=== PATIENT | female | born 1935 | race Caucasian/White ===

== ENCOUNTER 2018-05-22 04:15 | Inpatient (IN) | payer MEDICARE ==
[~2018-05-22] VITALS: Ht 165.1 cm; Wt 68.0 kg
--- NOTE | 2018-05-22 04:15 | NUR ---
PT DIPESH ALS. TAKEN TO BED 10
[2018-05-22 04:19] VITALS: BP 216/85
--- NOTE | 2018-05-22 04:22 | NUR ---
EKG PERFORMED AT BEDSIDE WITH RN AND FAMILY MEMBER PRESENT. PT COVERED IN GOWN DURING PROCEDURE
[2018-05-22] MEDS ORDERED: cefTRIAXone 1,000 MG in DEXT 5% MINI-BAG PLUS 50 ML IV ONE (04:30)
--- NOTE | 2018-05-22 04:30 | NUR ---
BIBA. C/O ELEVATED BP X 8 HOURS. PT DENIES ANY CP/SOB. PATIENT RECTAL TEMP 92.5 UPON ARRIVAL. ALL OTHER VSS. GRANDAUGHTER AT BEDSIDE STATES THAT SHE WAS CALLED BY HER GRANDFATHER BECAUSE THE PATIENT WAS "ACTING STRANGE AND HALLUCINATING". HX OF DEMENTIA. PATEITN ANSWERING QUESTIONS APPROPRIATLY AT TIME OF ARRIVAL.
[2018-05-22] MEDS ORDERED: BENA40TA PO (04:33)
[2018-05-22] MEDS ORDERED: POTA20TE92 PO (04:33)
[2018-05-22] MEDS ORDERED: GLIM1TAB6 PO (04:33)
[2018-05-22] MEDS ORDERED: FLUT1POW3 IH (04:33)
[2018-05-22] MEDS ORDERED: FURO-570 PO (04:33)
[2018-05-22] MEDS ORDERED: CARV25TA PO (04:33)
[2018-05-22] MEDS ORDERED: ASPI81EC30 PO (04:33)
[2018-05-22] MEDS ORDERED: PRAV20TA2 PO (04:33)
--- NOTE | 2018-05-22 04:36 | NUR ---
ANYA YANG PUT OVER PATIENT TO HELP WITH WARMING.
[2018-05-22 04:56] LABS: BASOPHILS % (AUTO) 0.3 % (0.0-2.0); EOSINOPHILS # (AUTO) 0.3 K/uL (0-0.4); EOSINOPHILS % (AUTO) 3.1 % (0.0-4.0); HEMATOCRIT 39.9 % (36-48); HEMOGLOBIN 13.3 g/dL (12.0-16.0); LYMPHOCYTES # (AUTO) 1.7 K/uL (2.5-16.5); LYMPHOCYTES % (AUTO) 19.3 % (20.5-51.1); MEAN CORPUSCULAR HEMOGLOBIN 29 pg (27-31); MEAN CORPUSCULAR HGB CONC 33 g/dL (33-37); MEAN CORPUSCULAR VOLUME 88.5 fL (80-94); MONOCYTES # (AUTO) 0.4 K/uL (0.8-1.0); MONOCYTES % (AUTO) 4.2 % (1.7-9.3); NEUTROPHILS # (AUTO) 6.4 K/uL (1.8-7.7); NEUTROPHILS % (AUTO) 73.1 % (42.2-75.2); PLATELET COUNT (AUTO) 197 K/uL (140-450); RED BLOOD CELL COUNT(AUTO) 4.51 MIL/uL (4.20-5.40); RED CELL DISTRIBUTION WIDTH 14.5 % (11.6-13.7); WHITE BLOOD COUNT (AUTO) 8.7 K/uL (4.8-10.8)
[2018-05-22] MEDS ORDERED: cefTRIAXone 1,000 MG VIAL ONE (04:57)
[2018-05-22 05:04] LABS: ANION GAP 12.3 (8-16); CARBON DIOXIDE 28.6 mmol/L (21-32); CHLORIDE 102 mmol/L (98-107); CREATININE 1.6 mg/dL (0.6-1.3); GLUCOSE 64 mg/dL (74-106); POTASSIUM 3.9 mmol/L (3.5-5.1); SODIUM SERUM 139 mmol/L (136-145); UREA NITROGEN, BLOOD 32 mg/dL (7-18)
[2018-05-22 05:14] LABS: PROTHROMBIN TIME 9.8 secs (10.8-13.4)
--- NOTE | 2018-05-22 05:14 | NUR ---
RECTAL TEMP RETAKEN RECORDED AT 92.[address] UGALDE MADE AWARE. BEAR HUGGER STILL IN PLACE
[2018-05-22 05:22] LABS: ALBUMIN 3.3 g/dL (3.4-5.0); ASPARTATE AMINOTRANSFERASE 25 U/L (15-37); TOTAL BILIRUBIN 0.4 mg/dL (0.0-1.0)
[2018-05-22] MEDS ORDERED: DEXTROSE 50% 50 ML SYR IVP ONE ×3 (05:25→05:40)
[2018-05-22] MEDS ORDERED: ENALAPRILAT 2.5 MG/2 ML VIAL IVP ONE (05:45)
--- NOTE | 2018-05-22 06:07 | NUR ---
Dr. Lott evaluating patient at bedside.
--- NOTE | 2018-05-22 06:10 | NUR ---
BODY TEMP AT 93.[address] UGALDE MADE AWARE
[2018-05-22 06:27] LABS: APPEARANCE,URINE CLOUDY (CLEAR); BILIRUBIN,URINE NEGATIVE (NEGATIVE); BLOOD, URINE TRACE-L (NEGATIVE); COLOR,URINE YELLOW (YELLOW); LEUKOCYTE ESTERASE ,URINE TRACE (NEGATIVE); NITRITE, URINE POSITIVE (NEGATIVE); UGLUCOSE NEGATIVE (NEGATIVE)
[2018-05-22] MEDS ORDERED: ACETAMINOPHEN 325 MG TAB PO PRN (06:50)
[2018-05-22] MEDS ORDERED: HYDROcodone/APAP 5/325 MG 1 TAB TAB PO PRN ×2 (06:50)
[2018-05-22] MEDS ORDERED: ONDANSETRON 4 MG/2 ML VIAL IVP PRN (06:50)
[2018-05-22] MEDS ORDERED: ALBUTEROL 0.083% 2.5 MG/3 ML NEBU IH PRN (06:50)
[2018-05-22 06:55] LABS: RBC,URINE 0-5 /HPF (0-5); WBC,URINE 0-5 /HPF (0-5)
--- NOTE | 2018-05-22 07:01 | NUR ---
REPORT GIVEN TO SHADIA COATS. PATIENT STABLE AT TIME OF TRANSFER OF CARE.
[2018-05-22] MEDS ORDERED: hydrALAZINE 25 MG TAB PO PRN (07:05)
--- NOTE | 2018-05-22 07:05 | NUR ---
REPORT RECIEVED FROM PREMA/SHADIA. PT IS [id number]. NO PAIN. NEW RECTAL TEMP IS 92.2. BP 152/84. Addendum: 05/22/18 at 0718 by [email or web address] PT ON HEAT
--- NOTE | 2018-05-22 07:43 | NUR ---
Patient will be admitted to care of DR RICHARD. Admited to TELE. Will go to room 107 A. Belongings list completed. Report to SRAVANI/RN .
--- NOTE | 2018-05-22 07:43 | NUR ---
Pt admitted from ER at this time. Arrived in unit via gurney, transferred from [facility] to bed with 3-person total assist. Report received from [facility] ER nurse. Medical hx is obtained from pt who is aaox4, verbally responsive in vietnamese, slight hard of hearing. No c/o discomfort at this time, respirations even & nonlabored. Left forearm IV intact, asymptomatic & saline locked. Pt requested to go to toilet to void. Pt able to amb with her own 4ww with good balance & safety awareness. Voided mod amt. Pt back to bed, bear hugger blanket in place. Vital signs obtained. Pt oriented to room & unit, verbalized understanding & able to return demonstrate. Call light within reach.
[2018-05-22] MEDS ORDERED: CARVEDILOL 12.5 MG TAB PO SCH (08:00)
[2018-05-22] MEDS ORDERED: BENAZEPRIL 20 MG TAB PO SCH (09:00)
[2018-05-22] MEDS ORDERED: ASPIRIN 81 MG TAB.CHEW PO SCH (09:00)
[2018-05-22] MEDS ORDERED: NON-FORMULARY ITEM (Pravastatin Sodium* (Pravachol*) 20 MG) PO SCH (09:00)
[2018-05-22] MEDS ORDERED: ASPIRIN 81 MG PO SCH (09:00)
[2018-05-22] MEDS ORDERED: FUROSEMIDE 40 MG TAB PO SCH (09:00)
[2018-05-22] MEDS ORDERED: NON-FORMULARY ITEM (Fluticasone/Vilanterol (Breo Ellipta 100-25 Mcg INH) 1 POW) IH SCH (09:00)
--- NOTE | 2018-05-22 11:07 | NUR ---
Pt BP remains high (214/77), administered PRN Hydralazine, will continue to monitor patient and recheck BP in 30 min.
[2018-05-22 11:08] VITALS: BP 214/77
--- NOTE | 2018-05-22 11:25 | NUR ---
Dr. Bateman in unit. Notified of BP trend. Physician with order for clonidine.
[2018-05-22] MEDS ORDERED: cloNIDine 0.1 MG TAB PO PRN (11:30)
[2018-05-22 12:00] VITALS: BP 186/77
--- NOTE | 2018-05-22 13:21 | NUR ---
Clonidine reassessment: BP & pulse obtained. See vital signs. Pt awake, verbal, no c/o discomfort or dizziness. Call light within reach.
[2018-05-22] MEDS ORDERED: INSULIN LISPRO SLIDING SCALE 100 UNITS/ML VIAL SUBQ PRN (14:45)
[2018-05-22] MEDS ORDERED: DEXTROSE 50% 50 ML SYR IVP PRN (14:45)
[2018-05-22] MEDS ORDERED: CEPH250C16 PO (15:15)
[2018-05-22 16:00] VITALS: BP 146/67
[2018-05-22] MEDS ORDERED: BLOOD GLUCOSE MONITORING 1 DEV DEV FS SCH (16:30)
--- NOTE | 2018-05-22 16:30 | NUR ---
Written & verbal discharge instructions provided to pt. Verbalized understanding & agree with discharge plans. Left hand IV discontinued, IV cannula intact. Site with min bleeding, covered with dry dressing.
--- NOTE | 2018-05-22 17:05 | NUR ---
Pt discharged to home at this time. Left unit via wheelchair, able to amb from bed to wheelchair with impaired gait. Handheld assist provided. All belongings with pt upon departure. Left via private car with friend.
[2018-05-22] MEDS ORDERED: SIMVASTATIN 10 MG TAB PO SCH (21:00)
== END 2018-05-22 17:05 | disposition home or self-care (01) | DRG 683 ==
LOC: MED 04:15 → MTU 07:03
PROVIDERS: ADMIT Hospitalist; ATTEND Hospitalist
DX: I12.9 Hypertensive chronic kidney disease with stage 1 through stage 4 chronic kidney disease, or unspecified chronic kidney disease (principal); N39.0 Urinary tract infection, site not specified; I16.0 Hypertensive urgency; I10 Essential (primary) hypertension; E11.22 Type 2 diabetes mellitus with diabetic chronic kidney disease; J44.9 Chronic obstructive pulmonary disease, unspecified; F03.90 Unspecified dementia, unspecified severity, without behavioral disturbance, psychotic disturbance, mood disturbance, and anxiety; I25.10 Atherosclerotic heart disease of native coronary artery without angina pectoris; N18.9 Chronic kidney disease, unspecified; Z79.01 Long term (current) use of anticoagulants; Z85.118 Personal history of other malignant neoplasm of bronchus and lung; Z79.899 Other long term (current) drug therapy; Z90.710 Acquired absence of both cervix and uterus; Z90.49 Acquired absence of other specified parts of digestive tract; Z87.11 Personal history of peptic ulcer disease; I25.2 Old myocardial infarction; Z90.2 Acquired absence of lung [part of]
CPT/HCPCS: 36415; 70450; 71045; 80053; 81001; 82550; 83036; 83605; 83880; 84484; 85025; 85610; 85730; 87040; 87081; 87086; 87186; 93005; 96365; 96375; 99285; J0696; J1644; J1815; J3490; J7060

== ENCOUNTER 2018-11-27 13:25 | Emergency (ER) | payer MEDICARE ==
[~2018-11-27] VITALS: Ht 170.2 cm; Wt 75.9 kg
[~2018-11-27 13:25] MED LIST: ASPI81EC30 PO; BENA40TA PO; CARV25TA PO; CEPH250C16 PO; FLUT1POW3 IH; FURO-570 PO; GLIM1TAB6 PO; POTA20TE92 PO; PRAV20TA2 PO
[2018-11-27 13:28] VITALS: BP 151/72
--- NOTE | 2018-11-27 13:28 | NUR ---
BIB EMS TO BED 12
--- NOTE | 2018-11-27 13:41 | NUR ---
83F BIB EMS C/O BACK PAIN AND RT ANKLE PAIN S/P FALL. PT STATES HER LEGS GAVE OUT, WHICH HAPPENS FREQUENTLY. PT STATES SHE HIT THE WALL ON LEFT AND RIGHT SIDES OF BODY AND THEN FELL AND HIT THE GROUND. C/O RT ANKLE PAIN. NO ERYTHEMA. THERE IS SWELLING. C/O 10/10 PAIN AT THIS TIME. NO BRUISING NOTED ON BACK. AOX4. CAREGIVER AT BEDSIDE.
--- NOTE | 2018-11-27 14:47 | NUR ---
PT RESTING IN BED, AWAKE AND ALERT. NO NEEDS AT THIS TIME. CAREGIVER AT BEDSIDE.
--- NOTE | 2018-11-27 15:15 | NUR ---
REPOSITIONED PT IN BED. PT STATES SHE FEELS BETTER NOW AFTER THE REPOSITIONING.
[2018-11-27] MEDS ORDERED: HYDROcodone/APAP 5/325 MG 1 TAB TAB PO ONE (16:05)
--- NOTE | 2018-11-27 16:47 | NUR ---
PATIENT NOT BACK FROM CT YET.
--- NOTE | 2018-11-27 16:52 | NUR ---
PT IS BACK FROM XR VIA BEATRICE ASSISTED BY TRACTOR OPERATOR. ubigrateCO GIVEN TO PT.
--- NOTE | 2018-11-27 17:08 | NUR ---
LAB AT BEDSIDE
[2018-11-27 17:18] LABS: BASOPHILS % (AUTO) 0.5 % (0.0-2.0); EOSINOPHILS # (AUTO) 0.6 K/uL (0-0.4); EOSINOPHILS % (AUTO) 6.4 % (0.0-4.0); HEMATOCRIT 36.3 % (36-48); HEMOGLOBIN 11.9 g/dL (12.0-16.0); LYMPHOCYTES # (AUTO) 2.2 K/uL (2.5-16.5); LYMPHOCYTES % (AUTO) 22.9 % (20.5-51.1); MEAN CORPUSCULAR HEMOGLOBIN 30 pg (27-31); MEAN CORPUSCULAR HGB CONC 33 g/dL (33-37); MEAN CORPUSCULAR VOLUME 90.3 fL (80-94); MONOCYTES # (AUTO) 0.7 K/uL (0.8-1.0); MONOCYTES % (AUTO) 6.8 % (1.7-9.3); NEUTROPHILS # (AUTO) 6.2 K/uL (1.8-7.7); NEUTROPHILS % (AUTO) 63.4 % (42.2-75.2); PLATELET COUNT (AUTO) 178 K/uL (140-450); RED BLOOD CELL COUNT(AUTO) 4.02 MIL/uL (4.20-5.40); RED CELL DISTRIBUTION WIDTH 13.2 % (11.6-13.7); WHITE BLOOD COUNT (AUTO) 9.7 K/uL (4.8-10.8)
--- NOTE | 2018-11-27 18:08 | NUR ---
PT RESTING IN BED. STATES TOLERABLE PAIN AT THIS TIME. ALL NEEDS MET AT THIS TIME.
[2018-11-27 19:00] LABS: ANION GAP 15.7 (8-16); CARBON DIOXIDE 26.2 mmol/L (21-32); CHLORIDE 101 mmol/L (98-107); CREATININE 2.3 mg/dL (0.6-1.3); GLUCOSE 110 mg/dL (74-106); POTASSIUM 3.9 mmol/L (3.5-5.1); SODIUM SERUM 139 mmol/L (136-145); UREA NITROGEN, BLOOD 36 mg/dL (7-18)
--- NOTE | 2018-11-27 19:19 | NUR ---
REPORT GIVEN TO SHADIA SHEFFIELD. PT IN STABLE CONDITION.
--- NOTE | 2018-11-27 20:00 | NUR ---
PT SITTING UP IN A WHEEL CHAIR, CAREGIVER AT BEDSIDE. PT VSS WAITING FOR LAB RESULTS
--- NOTE | 2018-11-27 21:00 | NUR ---
PT SITTING UP IN WHEEL CHAIR, VSS, TRANSMISSION CALIBRATION ENGINEER AT CHAIR SIDE. PT STATED PAIN IS 0/10 AT THIS TIME. WAITING FOR LAB RESULTS. VALERIO MADE AWARE.
--- NOTE | 2018-11-27 21:15 | NUR ---
OCEAN EXPORT ACCOUNT MANAGER STATED SHE CAN NO LONGER WAIT FOR RESULTS, HAS TO TAKE PT HOME. ER MD MADE AWARE OF STATUS.
[2018-11-27 21:29] VITALS: BP 140/72
--- NOTE | 2018-11-27 21:30 | NUR ---
Patient does not wish to proceed with medical care recommended by DR. ALVARADO. Patient given information related to possible complications, up to and including , which could occur as a result of leaving hospital at this time. Patient verbalizes understanding of risks involved leaving against medical advice. Patient has signed AMA form.
== END 2018-11-27 21:30 | disposition home or self-care (01) ==
LOC: MED 13:25
DX: M25.561 Pain in right knee (principal); M25.562 Pain in left knee; M25.571 Pain in right ankle and joints of right foot; M25.572 Pain in left ankle and joints of left foot; M79.10 Myalgia, unspecified site; I10 Essential (primary) hypertension; E11.9 Type 2 diabetes mellitus without complications; F03.90 Unspecified dementia, unspecified severity, without behavioral disturbance, psychotic disturbance, mood disturbance, and anxiety; Z85.118 Personal history of other malignant neoplasm of bronchus and lung; Z79.899 Other long term (current) drug therapy; Z79.84 Long term (current) use of oral hypoglycemic drugs; Z98.890 Other specified postprocedural states; Z90.710 Acquired absence of both cervix and uterus; Z90.49 Acquired absence of other specified parts of digestive tract; Z87.39 Personal history of other diseases of the musculoskeletal system and connective tissue; Z79.2 Long term (current) use of antibiotics
CPT/HCPCS: 36415; 70450; 71045; 72170; 73562; 73610; 80048; 82948; 84484; 85025; 99284; Q0092

== ENCOUNTER 2019-01-30 12:23 | Emergency (ER) | payer MEDICARE ==
[~2019-01-30] VITALS: Ht 165.1 cm; Wt 82.1 kg
[2019-01-30 12:40] VITALS: BP 163/70
--- NOTE | 2019-01-30 12:56 | NUR ---
PATIENT WHEELCHAIR ASSISTED TO BED 11 AT THIS TIME.
--- NOTE | 2019-01-30 13:03 | NUR ---
83 Y/O FEMALE PRESENTING WITH C/C OF PAIN IN LUE AND LLE DUE TO FALL. PAIN 10/10, SHARP; THROBBING. PER PT DID NOT LOSE CONSCIOUSNESS, NO HEAD INJURY. FALL DUE TO WEAK KNEES PER PATIENT. USES ASSISTIVE DEVICES AT HOME AND HAS DAUGHTER LABORER AMMUNITION ASSEMBLY. MEDICAL HX OF CHF, HTN PER PATIENT. SIDE RAIL X1. DAUGHTER AT BEDSIDE.
[2019-01-30] MEDS ORDERED: HYDROcodone/APAP 5/325 MG 1 TAB TAB PO ONE (13:05)
--- NOTE | 2019-01-30 13:10 | NUR ---
NORCO PO ADMINISTERED. PTS DAUGHTER TO DRIVE PT HOME
--- NOTE | 2019-01-30 13:11 | NUR ---
XRAY AT BEDSIDE
--- NOTE | 2019-01-30 13:56 | NUR ---
PATIENT STATES RELIEF FROM PAIN. PAIN 4/10 AT THIS TIME
--- NOTE | 2019-01-30 15:00 | NUR ---
PENDING LINNETTE WRAP AND EKG AT THIS TIME. PT ALERT AND AWAKE. FAMILY AT BEDSIDE
[2019-01-30 15:35] VITALS: BP 151/62
--- NOTE | 2019-01-30 15:35 | NUR ---
PT STATES PAIN 2/10 UPON DISCHARGE
--- NOTE | 2019-01-30 15:35 | NUR ---
Patient discharged with v/s stable. Written and verbal after care instructions given and explained REGARDING KNEE PAIN. Patient alert, oriented and verbalized understanding of instructions. WHEELCHAIRED TO CAR. All questions addressed prior to discharge. ID band removed. Patient advised to follow up with PMD. Rx of NORCO AND COLACE given. Patient educated on indication of medication including possible reaction and side effects. Opportunity to ask questions provided and answered. PT STATES HER DAUGHTER IS ON THE WAY TO PICK HER UP PT DISCHARGED WITH L KNEE LINNETTE WRAP IN PLACE
--- NOTE | 2019-01-30 15:53 | NUR ---
PT WHEELCHAIRED TO CAR BY EMT, DAUGHTER PRESENT
== END 2019-01-30 15:35 | disposition home or self-care (01) ==
LOC: MED 12:23
DX: S80.02XA Contusion of left knee, initial encounter (principal); S40.012A Contusion of left shoulder, initial encounter; S80.12XA Contusion of left lower leg, initial encounter; E11.9 Type 2 diabetes mellitus without complications; F03.90 Unspecified dementia, unspecified severity, without behavioral disturbance, psychotic disturbance, mood disturbance, and anxiety; I10 Essential (primary) hypertension; Z79.899 Other long term (current) drug therapy; Z79.82 Long term (current) use of aspirin; Z79.2 Long term (current) use of antibiotics; W18.39XA Other fall on same level, initial encounter; Y92.009 Unspecified place in unspecified non-institutional (private) residence as the place of occurrence of the external cause; Y93.89 Activity, other specified; Y99.8 Other external cause status
CPT/HCPCS: 73030; 73562; 73590; 99283; Q0092

== ENCOUNTER 2020-01-22 11:39 | Emergency (ER) | payer OTHER, MEDICAID ==
[~2020-01-22] VITALS: Ht 165.1 cm; Wt 79.4 kg
[~2020-01-22 11:39] MED LIST changes: +GLIM1TAB23 PO; -GLIM1TAB6 PO
[2020-01-22 11:44] VITALS: BP 229/87
[2020-01-22] MEDS ORDERED: FURO-570 PO (11:58)
[2020-01-22] MEDS ORDERED: AMLO5TAB PO (11:58)
[2020-01-22] MEDS ORDERED: INSU100S22 SUBQ (11:58)
[2020-01-22] MEDS ORDERED: BENA40TA PO (11:58)
[2020-01-22 12:11] LABS: BASOPHILS # (AUTO) 0.1 K/uL (0.00-0.22); BASOPHILS % (AUTO) 0.9 % (0.0-2.0); EOSINOPHILS # (AUTO) 0.6 K/uL (0-0.4); EOSINOPHILS % (AUTO) 7.2 % (0.0-4.0); HEMATOCRIT 25.6 % (36-48); HEMOGLOBIN 8.5 g/dL (12.0-16.0); LYMPHOCYTES # (AUTO) 1.7 K/uL (2.5-16.5); LYMPHOCYTES % (AUTO) 21.6 % (20.5-51.1); MEAN CORPUSCULAR HEMOGLOBIN 30 pg (27-31); MEAN CORPUSCULAR HGB CONC 33 g/dL (33-37); MEAN CORPUSCULAR VOLUME 90.9 fL (80-94); MONOCYTES # (AUTO) 0.6 K/uL (0.8-1.0); MONOCYTES % (AUTO) 7.2 % (1.7-9.3); NEUTROPHILS % (AUTO) 63.1 % (42.2-75.2); PLATELET COUNT (AUTO) 180 K/uL (140-450); RED BLOOD CELL COUNT(AUTO) 2.82 MIL/uL (4.20-5.40); RED CELL DISTRIBUTION WIDTH 13.8 % (11.6-13.7)
[2020-01-22] MEDS ORDERED: ASPIRIN 81 MG TAB.CHEW PO ONE (12:15)
[2020-01-22] MEDS ORDERED: HUM SUBQ (12:23)
[2020-01-22] MEDS ORDERED: BUDE1AER IH (12:23)
[2020-01-22] MEDS ORDERED: FERR325E14 PO (12:23)
[2020-01-22] MEDS ORDERED: KETO2CRE3 TP (12:23)
[2020-01-22] MEDS ORDERED: DULA0.75 SC (12:23)
[2020-01-22 12:27] LABS: ALBUMIN 2.6 g/dL (3.4-5.0); ANION GAP 16.5 (8-16); ASPARTATE AMINOTRANSFERASE 20 U/L (15-37); CARBON DIOXIDE 24.6 mmol/L (21-32); CHLORIDE 101 mmol/L (98-107); GLUCOSE 187 mg/dL (74-106); POTASSIUM 4.1 mmol/L (3.5-5.1); SODIUM SERUM 138 mmol/L (136-145); TOTAL BILIRUBIN 0.3 mg/dL (0.0-1.0); UREA NITROGEN, BLOOD 42 mg/dL (7-18)
[2020-01-22 12:29] LABS: CREATININE 5.5 mg/dL (0.6-1.3)
[2020-01-22 15:48] VITALS: BP 178/85
== END 2020-01-22 15:45 | disposition home or self-care (01) ==
LOC: MED 11:39
DX: R07.9 Chest pain, unspecified (principal); R19.7 Diarrhea, unspecified; E11.9 Type 2 diabetes mellitus without complications; F03.90 Unspecified dementia, unspecified severity, without behavioral disturbance, psychotic disturbance, mood disturbance, and anxiety; I50.9 Heart failure, unspecified; I10 Essential (primary) hypertension; Z85.9 Personal history of malignant neoplasm, unspecified; Z79.899 Other long term (current) drug therapy
CPT/HCPCS: 36415; 71045; 80053; 83880; 84484; 85025; 93005; 99285; G0480